=== PATIENT | male | born 1995 | race Caucasian/White ===

== ENCOUNTER 2022-11-19 09:03 | Outpatient (CLI) | payer OTHER | END 2022-11-19 09:04 | disposition home or self-care (01) | LOC: BICULT 09:03 | PROVIDERS: ATTEND Family Medicine | DX: R94.5 Abnormal results of liver function studies (principal); K76.0 Fatty (change of) liver, not elsewhere classified; R16.1 Splenomegaly, not elsewhere classified | CPT/HCPCS: 76705 ==